=== PATIENT | female | born 1985 | race Two or more races ===

== ENCOUNTER → 2024-10-14 | Outpatient (CLI) | payer OTHER, SELFPAY ==
--- NOTE | 2024-10-14 08:30 | XR_ITS ---
Examination: Transvaginal ultrasound of the pelvis, complete Technique: Transvaginal sonographic images pelvis performed using wetzel scale imaging Exam date and time: October 14, 2024 0906 hours INDICATIONS: Intermittent vaginal bleeding beginning 6 months ago FINDINGS: Uterus 9.5 cm with uterine fundal masses 18 x 24 mm, 21 x 23 mm Endometrial stripe 12 mm Right ovary 2.9 cm arterial flow Left ovary 2.6 cm arterial flow Small ovarian follicles IMPRESSION: Recommend transvaginal pelvic sonography to further assess uterine fundal masses.
--- NOTE | 2024-10-14 09:00 | XR_ITS ---
Examination: Breast ultrasound, unilateral, left complete Date and time of exam: October 14, 2024 administered 0849 hours INDICATIONS: Outer left breast pain 3 years, mammogram February 08, 2022 8 mm oval mass upper outer left breast anterior depth Technique: Real-time wetzel scale ultrasonographic imaging performed left breast including all 4 quadrants as well as nipple retroareolar and axillary region. Findings: 1:00 nodule lobular margins 10 x 10 mm IMPRESSION: BI-RADS Category 3: Probably benign findings One additional 6 month right mammogram follow-up needed to document stability of 1:00 nodule described above
--- NOTE | 2024-10-14 10:00 | XR_ITS ---
Examination: Diagnostic digital mammography, bilateral Computer aided detection 3-D breast Tomosynthesis, bilateral Date and time of exam: October 14, 2024 0822 hours INDICATIONS: Mammogram February 08, 2022 8 mm nodule upper outer left breast Technique: Nonmagnified MLO, CC views of the breasts to been obtained, reconstructed from 3-D Tomosynthesis images. R2 computer aided detection program utilized for evaluation of suspicious masses and/or abnormal calcifications. 3-D Tomosynthesis images obtained. Findings: The breasts are heterogeneously dense, which may obscure small masses Numerous right skin lesions Benign calcifications No interval suspicious masses Impression: BI-RADS Category 2: Benign findings Return to yearly follow-up mammography.
== END | disposition home or self-care (01) ==
LOC: CDIM 08:11
PROVIDERS: PCP Family Medicine; Referring Provider Obstetrics & Gynecology; Visit Provider Obstetrics & Gynecology
DX: R92.323 Mammographic fibroglandular density, bilateral breasts (principal); R92.1 Mammographic calcification found on diagnostic imaging of breast; R19.09 Other intra-abdominal and pelvic swelling, mass and lump; N63.12 Unspecified lump in the right breast, upper inner quadrant
CPT/HCPCS: 76641; 76830; 77062; 77066; G0279

== ENCOUNTER → 2024-12-25 | Outpatient (CLI) | payer OTHER, SELFPAY ==
--- NOTE | 2024-12-25 15:30 | XR_ITS ---
Examination: Transvaginal ultrasound of the pelvis, complete Technique: Transvaginal sonographic images pelvis performed using wetzel scale imaging Exam date and time: December 25, 2024 1513 hours INDICATIONS: Uterine fundal masses 24 mm, 23 mm on pelvic sonogram October 14, 2024 FINDINGS: Uterus 10.0 cm endometrial stripe 0.4 cm No discrete uterine mass Right ovary 3.7 cm arterial flow 22 mm cyst Left ovary 2.8 cm arterial flow IMPRESSION: No discrete uterine masses.
== END | disposition home or self-care (01) ==
LOC: CDIM 14:54
PROVIDERS: PCP Physician Assistant; Referring Provider Obstetrics & Gynecology; Visit Provider Obstetrics & Gynecology
DX: D25.9 Leiomyoma of uterus, unspecified (principal)
CPT/HCPCS: 76830